=== PATIENT | male | born 1985 | race Caucasian/White ===

== ENCOUNTER 2016-11-23 16:15 | Emergency (ER) | payer MEDICAID ==
--- NOTE | ~2016-11-23 | EKG ---
PATIENT: MAURIZIO RODRIGUEZ UNIT #: [id number] Ventricular Rate: 114 BPM Atrial Rate: 114 BPM P-R Interval: 134 ms QRS Duration: 96 ms Q-T Interval: 346 ms QTC Calculation(Bezet): 476 ms P [place]: 53 degrees Calculated R [place]: 64 degrees Calculated T [place]: 106 degrees Diagnosis Line: Sinus tachycardia Diagnosis Line: Nonspecific T wave abnormality Diagnosis Line: Abnormal ECG Diagnosis Line: Diagnosis Line: Confirmed by JOSELIN MOYA MD ([id number]) on Diagnosis Line: 11/24/2016 11:02:16 AM INTERPRETING MD: MIKE
[~2016-11-23 16:15] MED LIST: AMLODIPINE BESY10 MG PO; CARVEDILOL3.125 MG PO; COREG3.125 MG PO; FOLIC ACID1 MG PO; HUMALOG MIX 75/10 ML; HUMULIN R100 U/ML; LEVEMIR100 UNITS/ SUBQ; LIBRIUM25 M1 PO; LISINOPRIL; LISINOPRIL10 MG PO; MULTI VITAMIN1 EACH PO; NO MEDICATIONS; NORVASC10 MG PO; THIAMINE HCL100 MG PO; ZESTRIL10 M1 PO
[2016-11-23 18:40] LABS: BASOPHIL# 0.1 X10e3 (0-0.3); BASOPHIL% 0.7 % (0-2.5); EOSINOPHIL# 0.3 X10e3 (0-0.7); EOSINOPHIL% 2.2 % (0.0-7.0); HEMATOCRIT 42.7 % (38.0-50.0); HEMOGLOBIN 14.4 gm/dL (13.0-16.0); LYMPHOCYTE# 3.1 X10e3 (1.0-3.5); LYMPHOCYTE% 26.8 % (17.0-45.0); MEAN CELL VOLUME 81.8 FL (83-96); MEAN CORPUSCULAR HEMOGLOBIN 27.6 PG (28-34); MEAN CORPUSCULAR HGB CONC 33.7 g/dL (30-36); MEAN PLATELET VOLUME 7.5 FL (6.5-11.5); MONOCYTE# 0.8 X10e3 (0-1.0); MONOCYTE% 6.5 % (3.0-12.0); NEUTROPHIL# 7.4 X10e3 (1.5-7.1); NEUTROPHIL% 63.8 % (40-75); PLATELET COUNT 324 X10e3 (140-420); RED BLOOD COUNT 5.23 X10e (3.90-5.60); RED CELL DISTRIBUTION WIDTH 12.7 % (11.0-15.5); WHITE BLOOD COUNT 11.7 X10e3 (4.0-10.5)
[2016-11-23 18:44] LABS: DIFF IND NO
[2016-11-23 18:54] LABS: INR 0.9; PARTIAL THROMBOPLASTIN TIME 25.3 SECONDS (23.5-31.3)
[2016-11-23 19:11] LABS: BILIRUBIN, DIRECT 0.1 mg/dL (0.0-0.2); BILIRUBIN,INDIRECT 0.4 mg/dL (0.0-0.9); BILIRUBIN,TOTAL 0.5 mg/dL (0.2-2.0); BUN/CREATININE RATIO 21.66; CALCIUM SERUM 8.9 mg/dL (8.4-10.2); CREATININE SERUM 0.6 mg/dL (0.6-1.4); GLOM FILT RATE Estimated 132.2 mL/min (>60); POTASSIUM 3.9 mmol/L (3.5-5.1); PROTEIN TOTAL SERUM 7.4 g/dL (6.0-8.3)
[2016-11-23 19:30] LABS: POC - CKMB 2.9 ng/mL (0.0-7.9); POC - TROPONIN <0.05 ng/mL (<=0.05)
== END 2016-11-23 22:03 | disposition home or self-care (01) ==
LOC: CED 16:15
PROVIDERS: Emergency Medicine
DX: I10 Essential (primary) hypertension (principal); E11.65 Type 2 diabetes mellitus with hyperglycemia
CPT/HCPCS: 36415; 80048; 80076; 82553; 82947; 84484; 85025; 85610; 85730; 93005; 96374; 96375; 99284; J0360

== ENCOUNTER 2017-01-10 08:36 | Inpatient (IN) | payer MEDICAID ==
[~2017-01-10] VITALS: Ht 167.6 cm; Wt 74.0 kg
--- NOTE | ~2017-01-10 | CO ---
Unit #: [id number] #: [id number] Patient: MAURIZIO RODRIGUEZ L [id number] [address] [place], [place] [address] [id number] I MR#: [id number] NAME: MAURIZIO RODRIGUEZ ROOM: 304 Age: 31 Sex: M Admission Date: 01/10/2017 : 1985 Attending Physician: Ivan Roman M.D. Primary Care Physician: Primary Care Physician No Consultation Date: 01/18/2017 CONSULTATION REPORT REASON FOR CONSULTATION Followup. DISCUSSION Mr. Pal is a 31-year-old white male, seen in room 304 bed 1 on 01/18/2017. The patient dressed in hospital attire, lying comfortably in bed. Mood was labile. The patient reported unable to sleep last night, agitation, mood lability. Mom reported poor sleep last night, mood lability. The patient's vital signs; temperature 98.5, pulse 92, respirations 18, blood pressure 120/86, oxygen saturation 100%. The patient denied any thoughts of harming self or others, but still having above-mentioned symptom. The patient will be going to [facility]. REVIEW OF SYSTEMS Complete review of systems unremarkable. MENTAL STATUS EXAMINATION General appearance; the patient dressed casually. Lying comfortably in bed. Attention span and concentration, poor. Speech, slow in volume. Oriented in place and person. Mood and affect, labile. Thought process, circumstantial. Thought content, the patient denied any thoughts of harming self or others, but guarded, paranoid. Recent and remote memory, fair to slightly impaired. Language, intact. Fund of knowledge, fair. Insight and judgment, fair to slightly impaired. DIAGNOSES Major depressive disorder, recurrent, severe, F33.2. ASSESSMENT AND PLAN 1. Supportive psychotherapy and psychoeducation provided to the patient. 2. Educated about benefits and side effects of medication and course and prognosis of illness. 3. Advised to continue with current medication. If needed, consider further adjustment of medication. Please feel free to call if any questions, telephone #[phone]. Dictated by... Alejandro Aguilar M.D. DAYLIN/delmis TD: 01/18/2017 18:17 JOB #: [id number] Unit #: [id number] #: [id number] Patient: MAURIZIO RODRIGUEZ CONSULTATION REPORT Page 1 of 1 X Alejandro Aguilar MD CONSULTATION REPORT
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
--- NOTE | ~2017-01-10 | DS ---
Unit #: [id number] #: [id number] Patient: MAURIZIO RODRIGUEZ [id number] [place], [place] [address] [id number] I MR#: [id number] NAME: MAURIZIO RODRIGUEZ ROOM: 304 Age: Sex: M Admission Date: 01/10/2017 : 1985 Discharge Date: Attending Physician: Ivan Roman M.D. Primary Care Physician: Primary Care Physician No DISCHARGE SUMMARY ADDENDUM The patient also has urinary retention. The Kidd catheter was removed yesterday morning; however, the patient has not voided. On followup bladder scan this morning, he had over 1000 mL on bladder scan and Kidd catheter was placed back again. He is currently on Flomax. A urinalysis did not demonstrate any signs of infection. Dictated by... Raina Guzman/howard TD: 01/20/2017 07:20 JOB #: [id number] DISCHARGE SUMMARY Page 1 of 1 X X DISCHARGE SUMMARY
--- NOTE | ~2017-01-10 | MR122 ---
[facility] A Service of [facility] & [facility] RADIOLOGY TEXT RESULTS PATIENT: MAURIZIO RODRIGUEZ LOCATION: C3A 304-01 : [birth year] UNIT #: [id number] AGE: [address]: Ronni Thomas MD SEX: M ORDER DR: [id number] [facility] [address] [place], [place] [address] [id number] I MR#: [id number] Acc #: [id number] NAME: MAURIZIO RODRIGUEZ. : 1985 SEX: M STUDY DATE/TIME: 01/13/2017 20:39 UNIT: C3A U ROOM: 304 STUDY DESCRIPTION: MR MRA Head Wo Contrast Attending Physician: Ronni Thomas M.D. Ordering Physician: Hubert Roberts M.D. MRI CENTER REPORT This report is preliminary unless electronic signature is present. EXAM MR angiogram intracranial HISTORY Stroke on yesterday's brain MRI, brain stem. TECHNIQUE MR angiography performed [place] vasculature. FINDINGS The study is extremely motion-limited, despite more than 1 repeat. There is severe signal loss bilaterally at the carotid siphons which could be real or artifactual, unfortunately seen on multiple sequences. There is diseased appearance to the distal left vertebral artery, probably due to some collateral flow. I believe that it is either occluded or has a very slow flow proximal to the distal intracranial portion. There is an irregular appearance to the basilar and there is probably true stenosis at the distal basilar. The left P1 vessel appears relatively hypoplastic and there is origin to the left posterior cerebral artery distribution from a large left posterior communicator. There is no gross intracranial vascular cutoff seen. Allowing for the motion, I am still concerned that there is some intracranial atherosclerotic disease. This is unusual in age group, unless the patient has severe risk factors. Please correlate for any clinical concern for vasculitis. There is probably an anterior communicating artery present but the anatomy is simply not well seen. I would recommend that study be repeated when the patient is better able to cooperate. IMPRESSION 1. This is a severely motion-limited study, despite multiple repeats. There is an abnormal appearance to the distal left vertebral artery. It probably reconstitutes from collateral vessels. It is likely that the [facility] A Service of [facility] & [facility] RADIOLOGY TEXT RESULTS PATIENT: MAURIZIO RODRIGUEZ LOCATION: C3A 304-01 : [birth year] UNIT #: [id number] AGE: [address]: Ronni Thomas MD SEX: M ORDER DR: left vertebral artery in the neck is either occluded or has very slow flow. There is also some narrowing of the distal basilar. This would be consistent with the brainstem insult seen on yesterday's brain MRI. 2. There is signal loss in the bilateral carotid siphons on multiple sequences. This could be real or artifactual and when the patient is better able cooperate, this study should be repeated. 3. Despite the amount of motion seen, I am concerned that there is true intracranial vascular irregularity. This is most concerning for intracranial atherosclerotic disease or vasculitis. It would be unusual in the patient's age group to represent intracranial atherosclerotic disease, unless patient has severe risk factors. STAT * RESULT Dictated by... Emilia Whatley M.D. THIS IS AN ELECTRONICALLY VERIFIED REPORT Emilia Whatley M.D. at 01/13/2017 10:59 PM PRITESH/pcl TD: 01/13/2017 22:32 JOB #: [id number] MRI CENTER REPORT Page 1 of 1 COPY
--- NOTE | ~2017-01-10 | CT17 ---
[facility] A Service of [facility] & [facility] RADIOLOGY TEXT RESULTS PATIENT: MAURIZIO RODRIGUEZ LOCATION: [facility] 304-01 : [birth year] UNIT #: [id number] AGE: [address]: NICOLE TINSLEYUJ V SEX: M ORDER DR: [id number] [facility] [address] [facility] [place], [place] [address] [id number] I MR#: [id number] Acc #: [id number] NAME: MAURIZIO RODRIGUEZ. : 1985 SEX: M STUDY DATE/TIME: 01/15/2017 8:40 UNIT: [address] ROOM: [facility] STUDY DESCRIPTION: CT Angio Head Attending Physician: Ronni Thomas M.D. Ordering Physician: Hubert Roberts M.D. Primary Care Physician: No Primary Care Physician MEDICAL IMAGING REPORT This report is preliminary unless electronic signature is present EXAM Head and neck CT angiogram with contrast, 01/15/2017. COMPARISON Brain MRI, 01/12/2017. CLINICAL HISTORY Nine-day history of generalized weakness and loss of appetite. PROCEDURE Axial contrast-enhanced head and neck CT angiogram with three-dimensional reformats. This CT exam was performed with one or more of the following radiation dose reduction techniques: automatic exposure control, adjustment of mA and/or kV according to patient size, and iterative reconstruction. FINDINGS There is a normal aortic arch branching pattern without proximal great vessel stenosis. The left vertebral artery is tiny and seen only segmentally throughout the neck. The right vertebral is normal in caliber and patent throughout the neck. There is plaque and irregularity in both common carotids and at both carotid bifurcations. On the left, there is 0% ICA stenosis by NASCET criteria, and on the right there is 10% to 20% ICA stenosis by NASCET criteria. There is narrowing in both cavernous carotids [id number] on the right and minimal on the left. The anterior communicator is patent and there is a type left posterior communicator/posterior cerebral origin and a tiny right posterior communicator. There is no evidence of intracranial aneurysm or flow-limiting stenosis, though there is retrograde flow in the left vertebral artery as expected. Otherwise, the intracranial vasculature appears normal and symmetric. [facility] A Service of [facility] RADIOLOGY TEXT RESULTS PATIENT: MAURIZIO RODRIGUEZ LOCATION: C3A PC 304-01 : [birth year] UNIT #: [id number] AGE: [address]: BRYAN TINSLEY V SEX: M ORDER DR: The midbrain lesion seen on an MRI is apparent but less well seen on CT. The remainder of the brain is unremarkable. The cervical soft tissues are unremarkable, though what appears to be an endotracheal tube actually terminates in the hypopharynx. Perhaps this simply represents an oral airway. The dural venous sinuses are normal. There is no intracranial mass or abnormal enhancement. IMPRESSION 1. The right vertebral is widely patent and dominant. The left vertebral is small and only seen segmentally throughout the neck. It does not contribute to the basilar artery. At the basilar confluence, there is retrograde flow in the distal left vertebral artery. The basilar artery itself is normal in caliber. The [place] is complete and there is no other intracranial flow-limiting stenosis and there is no intracranial aneurysm. 2. There is some plaque in the common carotids and at the carotid bifurcations, but there is 0% left and no more than 10% to 20% right ICA stenosis by NASCET criteria. 3. No intracranial mass is seen and the dural venous sinuses are normal. Dictated by... Festus Mirza M.D. THIS IS AN ELECTRONICALLY VERIFIED REPORT Festus Mirza M.D. at 01/20/2017 5:04 PM TEV/danaw TD: 01/15/2017 14:03 JOB #: [id number] MEDICAL IMAGING REPORT Page 1 of 1 COPY
--- NOTE | ~2017-01-10 | CT23 ---
[facility] A Service of [facility] & [facility] RADIOLOGY TEXT RESULTS PATIENT: MAURIZIO RODRIGUEZ LOCATION: [facility] 304-01 : [birth year] UNIT #: [id number] AGE: [address]: PRASHANTH TINSLEYJ V SEX: M ORDER DR: [id number] [facility] [address] [facility]. [place], [place] [address] [id number] I MR#: [id number] Acc #: [id number] NAME: MAURIZIO RODRIGUEZ : 1985 SEX: M STUDY DATE/TIME: 01/15/2017 8:40 UNIT: [address] ROOM: [facility] STUDY DESCRIPTION: CT Angio Neck Attending Physician: Ronni Thomas M.D. Ordering Physician: Hubert Roberts M.D. Primary Care Physician: No Primary Care Physician MEDICAL IMAGING REPORT This report is preliminary unless electronic signature is present EXAM Neck CT angiogram with contrast, 01/15/2017. CLINICAL HISTORY Nine-day history of generalized weakness and loss of appetite. FINDINGS Please see CT angio head for results. Dictated by... Festus Mirza M.D. THIS IS AN ELECTRONICALLY VERIFIED REPORT Festus Mirza M.D. at 01/20/2017 5:03 PM ANGELA/kamlesh TD: 01/15/2017 14:05 JOB #: [id number] MEDICAL IMAGING REPORT Page 1 of 1 COPY
--- NOTE | ~2017-01-10 | CO ---
Unit #: [id number] #: [id number] Patient: DEMARCO RODRIGUEZ [id number] [facility] [address] [facility]. [place], [place] [address] [id number] I MR#: [id number] NAME: DEMARCO RODRIGUEZ. ROOM: 304 Age: 31 Sex: M Admission Date: 01/10/2017 : 1985 Attending Physician: Ivan Roman M.D. Primary Care Physician: Primary Care Physician No Consultation Date: 01/19/2017 CONSULTATION REPORT REASON FOR CONSULTATION Followup. DISCUSSION Demarco is a 31-year-old white male, seen in room 304, bed 1 on 01/19/[address] [facility]. The patient's mood was labile, keeping his eyes closed, sad, dysphoric, irritable. The patient's blood glucose was 287. The patient reports tolerating medication fairly well, sleeping good. The patient denied any thoughts of harming self or others. The patient's vital signs; temperature 98.1, heart rate 93, respirations 16, blood pressure 145/93, and oxygen saturation 100%. The patient's speech is somewhat slurred and gait is unsteady. REVIEW OF SYSTEMS Complete review of systems unremarkable. MENTAL STATUS EXAMINATION General appearance; the patient dressed casually in hospital attire. Attention span and concentration, poor. Speech, poor articulation, at times slurred . Oriented in time, place, and person. Mood and affect, labile. Thought process, circumstantial. Thought content, guarded and paranoid, but denied any thoughts of harming self or others. Recent and remote memory, fair to slightly impaired. Language, intact. Fund of knowledge, fair. Insight and judgment, fair to slightly impaired. DIAGNOSIS Psychiatric: Major depressive disorder, recurrent, severe. ASSESSMENT/PLAN 1. Advised to continue with current medication and therapeutic protocol. If needed, consider further adjustment of medication. Supportive psychotherapy and psychoeducation provided to the patient. 2. We will continue to follow. Please feel free to call if any questions, telephone #[phone]. Dictated by... Raina Laws/delmis TD: 01/19/2017 23:59 JOB #: [id number] Unit #: [id number] #: [id number] Patient: DEMARCO RODRIGUEZ CONSULTATION REPORT Page 1 of 1 X Alejandro Aguilar MD CONSULTATION REPORT
--- NOTE | ~2017-01-10 | FU ---
[facility] DATE: 01/13/17 Patient: MAURIZIO RODRIGUEZ Physician: VIRIDIANA Address: [address] Room/Bed: [address] [place] [address], Zip: [place] [address] Admit Date: 01/10/17 Date of : [birth year] Height: 5 6 Weight: 165 75 NUTRITION MONITORING/FOLLOW-UP: Reason: CONSULT RE: STROKE PROTOCOL, F/U DX: DKA Anthropometrics: 5'6", WT: 167# (76 KG), BMI: 27 (ADMIT WEIGHT) Labs: GLU: 169, CREAT: 0.5, ALB: 3.2, AST: 96, ALT: 62, PHOS: 2.1, A1c: 13.4 (REFLECTS POOR GLUCOSE MANAGEMENT), NA+:134 Meds: LIPITOR, NOVOLOG, LEVEMIR, PROTONIX, KCL, ZOFRAN, NACL I&O's: 540/5326, 1 BM Skin: NO KNOWN SKIN ISSUES Assessment: CHART REVIEWED AND EVENTS NOTED. PT SEEN FOR STROKE PROTOCOL. PT TRANSFERED FROM ICU TO [facility]IC, CONFUSED AND DISORIENTED AT TIME OF VISIT. PER CHART, DOUGH BRAKER EVALED PT AND RECOMMEDED PT BE SUPERVISED WHEN EATING AND AT RISK FOR ASPIRATION. OF NOTE, RD ASSESSED PT ON 01/10/[address] PROVIDED CC + TYPE 1 DIET EDUCATION WITH FAMILY AT BEDSIDE AT THIS TIME. FAMILY REPORTED NO DIET QUESTIONS. RD TO FOLLOW. Dx: ALTERED NUTRIENT RELATED LAB VALUES R/T MEDICATION NON-COMPLIANCE AEB A1c OF 13.4, GLUCOSE 334 ON ADMISSION, DKA.-ACTIVE 2. ALTERED NUTRIENT NEEDS R/T CURRENT CLINICAL CONDITION AEB DOUGH BRAKER FOLLOWING, STROKE. Intervention: 1. MECHANICAL GROUND DIET + NDD2 + NECTAR THICK LIQUID 2. ENSURE PUDDING BID W/MEALS 3. DIET EDUCATION (WRITTEN AND VERBAL) Monitoring, Evaluation and Goals: 1. TOLERANCE OF ORAL DIET ADVANCEMENT-IN PROGRESS 2. REDUCTION OF A1c, GLUCOSE <200 mg/dL-IN PROGRESS (CURRENT GLUCOSE IS 169 mg/dL) MONITOR: PER PROTOCOL, CRITERIA TO DETERMINE IF ABOVE GOALS ARE MET Recommendations: 1. ORDER BUTTERSCOTCH ENSURE PUDDING BID W/MEALS 2. CONTINUE DOUGH BRAKER EVALUATION FOR SAFE SWALLOW 3. RECOMMEND TO ADD CC (60 G CARBS/MEAL) TO CURRENT DIET ORDER 2' PMH, DX, ELEVATED BLOOD [facility] DATE: 01/13/17 Patient: MAURIZIO RODRIGUEZ Physician: VIRIDIANA Address: [address] [place] [address] Room/Bed: [address] [place] [address], Zip: [place] [address] Admit Date: 01/10/17 Date of : [birth year] Height: 5 6 Weight: 165 75 SUGAR LEVELS NOTED 4. REPLACE LYTES PRN (PHOS LOW) RD WILL F/U PER PROTOCOL PT IS MILDLY COMPROMISED Respectfully, JASMYN MOREL MS, RD, LD [employer] and Nutrition[facility] Services [facility] cc: client file
--- NOTE | ~2017-01-10 | CT2 ---
[facility] A Service of [facility] RADIOLOGY TEXT RESULTS PATIENT: MAURIZIO RODRIGUEZ LOCATION: [address] : 83 UNIT #: [id number] AGE: [address]: Layla Beltran MD SEX: M ORDER DR: [id number] [facility] [address] [facility]. [place], [place] [address] [id number] I MR#: [id number] #: [id number] NAME: MAURIZIO RODRIGUEZ. : 1985 SEX: M STUDY DATE/TIME: 01/10/2017 12:05 UNIT: [facility] ROOM: [facility] STUDY DESCRIPTION: CT Abd and Pelv W Cont Attending Physician: Layla Beltran M.D. Ordering Physician: Mihir Moreno M.D. Primary Care Physician: No Primary Care Physician MEDICAL IMAGING REPORT This report is preliminary unless electronic signature is present EXAM CT of the abdomen and pelvis. HISTORY Weakness, loss of appetite since January 06, 2017 and increased blood sugar. TECHNIQUE Axial CT images were obtained from the dome of the diaphragm through the symphysis pubis following the administration of intravenous contrast material. This CT exam was performed with one or more of the following radiation dose reduction techniques: automatic exposure control, adjustment of mA and/or kV according to patient size, and iterative reconstruction. FINDINGS This patient's distal esophagus appears thick-walled and edematous and there also appears to be some periesophageal standing. Correlation with any evidence of esophagitis is suggested. Stomach and proximal small bowel appear unremarkable as are the adrenal glands. Pancreas is atrophic. Liver appears unremarkable. Spleen also appears normal. Patient I think does have some nonobstructing stones within the left kidney. There is also a lesion arising from the left kidney measuring up to 0.09 x 1.1 cm which is not definitely a simple cyst. Solid lesion cannot be excluded. The patient's urinary bladder appears distended. There is no evidence of mechanical bowel obstruction. Prostate gland appears unremarkable. I do not see any free fluid or adenopathy within the pelvis. Review of bony windows does not demonstrate any aggressive osseous abnormalities. STS. [facility] A Service of [facility] RADIOLOGY TEXT RESULTS PATIENT: MAURIZIO RODRIGUEZ LOCATION: [facility] : 83 UNIT #: [id number] AGE: [address]: Layla Beltran MD SEX: M ORDER DR: IMPRESSION 1. Distal esophagus appears thick-walled and edematous. There also appears to be some periesophageal soft tissue stranding. Correlation with any evidence of esophagitis is recommended. 2. Nonobstructing stones identified within the left kidney. 3. Exophytic structure arising from the left kidney measuring up to 1.1 x 0.9 cm. it is indeterminate. The possibility of solid renal mass cannot be excluded. Further evaluation with renal protocol CT or MRI on a nonemergent outpatient basis is recommended. MRI would be the chest of choice in this 31-year-old patient. 4. Pancreatic atrophy. 5. Distension of the urinary bladder. Correlation with any history of urinary retention is suggested. Dictated by... Concha Quinn M.D. THIS IS AN ELECTRONICALLY VERIFIED REPORT Concha Quinn M.D. at 01/10/2017 5:04 PM HALEY/kamlesh TD: 01/10/2017 15:56 JOB #: [id number] MEDICAL IMAGING REPORT Page 1 of 1 COPY
--- NOTE | ~2017-01-10 | CO ---
Unit #: [id number] #: [id number] Patient: MAURIZIO RODRIGUEZ [id number] [address] [address] [id number] I MR#: [id number] NAME: MAURIZIO RODRIGUEZ ROOM: 304 Age: 31 Sex: M Admission Date: 01/10/2017 : 1985 Attending Physician: Lazara Dowell M.D. Primary Care Physician: Primary Care Physician No Consultation Date: 01/16/2017 CONSULTATION REPORT REASON FOR CONSULTATION Followup. DISCUSSION Mr. Pal is a 31-year-old white male, seen in room 304, bed 1 on 01/16/2017. The patient dressed casually, lying comfortably in bed. The patient's brother was at the bedside. The patient was able to answer questions appropriately. The patient has a history of depressive disorder, alcohol abuse, recent CVA. Currently medications are working. The patient reports feeling better and currently on Prozac and Zyprexa combination. Denied any suicidal or homicidal ideation. Denied any agitation. Slept good. The patient's vital signs; temperature 98.1, heart rate 93, respiratory rate 16, blood pressure 138/95, and oxygen saturation 98%. REVIEW OF SYSTEMS Complete review of system is unremarkable. MENTAL STATUS EXAMINATION General appearance; the patient dressed casually in hospital attire, lying comfortably in bed. Attention span and concentration, fair to poor. Speech, slow in volume with long pauses. Oriented in place and person. Mood and affect; sad, depressed, flat. Thought process, circumstantial. Thought content, the patient denied any suicidal or homicidal ideation. Denied any auditory or visual hallucination, but paranoid. Recent and remote memory, fair. Language, fair. Fund of knowledge, fair. Insight and judgment, fair to slightly impaired. DIAGNOSES Major depressive disorder, recurrent, severe, F33.2; alcohol use disorder, severe, F10.20. ASSESSMENT/PLAN 1. Supportive psychotherapy and psychoeducation provided to the patient. 2. Educated about benefits and side effects of medication and course and prognosis of illness. 3. Advised to continue with the current combination of medication. If needed, consider further adjustment. Please feel free to call if any questions, telephone #[phone]. Dictated by... Alejandro Aguilar M.D. Unit #: [id number] #: [id number] Patient: MAURIZIO RODRIGUEZ DAYLIN/modl TD: 01/17/2017 00:10 JOB #: [id number] CONSULTATION REPORT Page 1 of 1 X Alejandro Aguilar MD CONSULTATION REPORT
--- NOTE | ~2017-01-10 | CO ---
Unit #: [id number] #: [id number] Patient: MAURIZIO RODRIGUEZ [id number] [address] [address] [id number] I MR#: [id number] NAME: MAURIZIO RODRIGUEZ ROOM: 304 Age: 31 Sex: M Admission Date: 01/10/2017 : 1985 Attending Physician: Ronni Thomas M.D. Consultation Date: 01/14/2017 CONSULTATION REPORT REASON FOR CONSULTATION Depression. HISTORY OF PRESENT ILLNESS Mr. Pal is a 31-year-old white male, seen in room 304 bed 1 on 01/14/2017. The patient reported increasingly depressed in the last 4 days. The patient reported sad, depressed, feeling of hopelessness, admitted in diabetic ketoacidosis. The patient has a history of alcohol abuse and depression. The patient reported mood lability, racing thoughts, paranoia, but denied any suicidal or homicidal ideation. The patient was admitted on 01/10/2017 with high blood sugar. The patient's blood glucose was 314 upon admission. PAST PSYCHIATRIC HISTORY Remarkable for history of previous treatment at [facility] in 2014, diagnosed with alcohol dependence and mood disorder. MEDICAL HISTORY Remarkable for history of hypertension, diabetic retinopathy. MEDICATIONS HISTORY The patient is on Lipitor, aspirin, NovoLog, Flomax, Levemir, Protonix, Neurontin. FAMILY HISTORY AND SOCIAL HISTORY The patient has a good support system. No history of abuse. Reported history of alcohol abuse. REVIEW OF SYSTEMS Complete review of systems unremarkable. MENTAL STATUS EXAMINATION The patient's vital signs; temperature 100.4, pulse 103, respirations 16, blood pressure 156/96, and oxygen saturation 98%. General appearance; the patient dressed casually lying comfortably in bed. Attention span and concentration, fair. Speech, regular rate and coherent. Oriented in time, place, and person. Mood and affect; sad and dysphoric. Thought process, coherent. Thought content, the patient denied any thoughts of harming self or others, but guarded, paranoid, racing thoughts, depression. Recent and remote memory, fair. Language, intact. Fund of knowledge, fair. Insight and judgment, fair to slightly impaired. DIAGNOSES Psychiatric: Major depressive disorder, recurrent, severe, F33.2; history Unit #: [id number] #: [id number] Patient: MAURIZIO RODRIGUEZ of alcohol abuse disorder, moderate to severe, F10.20. Secondary diagnosis: Deferred. Medical diagnosis: Please refer to H and P. Stressors: Psychosocial stressors. ASSESSMENT AND PLAN 1. Supportive psychotherapy and psychoeducation provided to the patient. 2. Educated about benefits and side effects of medication and course and prognosis of illness. 3. Advised to add Prozac 20 mg and Zyprexa 5 mg at bedtime. If needed, consider further adjustment of medication. Please feel free to call if any question, telephone #[phone]. Dictated by... Raina Laws/delmis TD: 01/15/2017 18:37 JOB #: [id number] CONSULTATION REPORT Page 1 of 1 X Alejandro Aguilar MD X CONSULTATION REPORT
--- NOTE | ~2017-01-10 | HP ---
Unit #: [id number] #: [id number] Patient: MAURIZIO RODRIGUEZ [id number] [facility] [address]. [place], [place] [address] [id number] MR#: [id number] NAME: MAURIZIO RODRIGUEZ. ROOM: Age: 31 Sex: M Admission Date: 01/10/2017 : 1985 Attending Physician: Mihir Moreno M.D. Primary Care Physician: No Primary Care Physician HISTORY AND PHYSICAL CHIEF COMPLAINT High blood sugar, out of insulin. HISTORY OF PRESENT ILLNESS The patient is a 31-year-old male with past medical history of diabetes, hypertension, alcohol abuse who presented to the emergency department for evaluation of the above. The patient states that he ran out of insulin a few weeks ago. He started feeling poorly about two days ago. He reports two to three bouts of nonbloody emesis within the past 24 hours. He denies any diarrhea. He has had abdominal pain intermittently. He denies any urinary symptoms. In the emergency department, initial glucose was 334. Glucose was 314 on comprehensive metabolic panel with CO2 of 10. Anion gap of 22. He was given 2 L of normal saline as well as 5 units of regular insulin. He is being admitted to [facility] for evaluation and further treatment. PAST MEDICAL HISTORY 1. Admission to [facility] January 15 through January 17, 2015 for accelerated hypertension and alcohol abuse. 2. Diabetes with retinopathy and peripheral neuropathy. 3. Hypertension. PAST SURGICAL HISTORY Eye surgery. SOCIAL HISTORY The patient lives with his mom. He has a history of alcohol abuse but states that his last drink was two years ago. He also has history of smoking but denies current smoking. He states that he sometimes takes opiates that are not prescribed. FAMILY HISTORY Notable for there being no history of diabetes in his parents. REVIEW OF SYSTEMS A complete review of systems is negative except as indicated in the HPI. The patient states that he has been feeling generally weak. He has had several falls. He denies any loss of consciousness. DIAGNOSTIC STUDIES LABORATORY: Urinalysis shows 3+ protein, greater than 1000 glucose, 3+ Unit #: [id number] #: [id number] Patient: MAURIZIO RODRIGUEZ ketones, 3+ blood with 2-5 red blood cells. Complete blood count notable for white blood cell count of 24.9. Comprehensive metabolic panel notable for sodium of 132, CO2 was 10, anion gap was 22, glucose 314, BUN and creatinine 27 and 1.2 respectively. AST and ALT are 135 and 42 respectively. Beta hydroxybutyrate 7.91. IMAGING: CT of the abdomen and pelvis shows possible esophagitis as well as an exophytic structure involving the left kidney. Renal protocol CT is recommended on an nonemergent basis. PHYSICAL EXAMINATION VITAL SIGNS: Temperature is 98.6, pulse 109, respirations 16, blood pressure 160/104, oxygen saturation 100% on room air. GENERAL: The patient is a male who is awake and alert in no acute distress. HEENT: The head is atraumatic. Mucous membranes are dry. NECK: Supple. Trachea is midline. CARDIOVASCULAR: Tachycardic in the 100s. LUNGS: Clear to auscultation bilaterally with no increased work of breathing. ABDOMEN: Soft, nontender with bowel sounds present in all four quadrants. EXTREMITIES: Nontender with no pedal edema. NEUROLOGIC: The patient is awake and alert. He is oriented x3. He is moving all extremities. PSYCHIATRIC: The patient is somewhat tearful. He is cooperative. SKIN: Skin of examined areas is warm and dry. He does have scattered contusions on the lower extremities. ASSESSMENT The patient is a 31-year-old male with: 1. Diabetic ketoacidosis: The patient received 2 L of normal saline in the emergency department as well as 5 units of regular insulin. The patient has been out of his insulin for several weeks. He is unable to tell me his home regimen of insulin other than the fact that he is on Humalog. He is not sure how much. 2. Anion gap metabolic acidosis with an anion gap of 22. 3. Uncontrolled hypertension with an initial blood pressure of 160/104. The patient received 10 mg of labetalol. Most recent blood pressure is 178/103. 4. General weakness. 5. Retinopathy. 6. Neuropathy. 7. History of alcohol abuse: The patient denies alcohol for the past two years. 8. Former smoker. 9. Left kidney mass. PLAN 1. Admit to intensive care unit. 2. Diabetic ketoacidosis protocol with insulin drip to start now. 3. P.r.n. hydralazine. 4. Check CPK. 5. EKG and cardiac enzymes. 6. P.r.n. Zofran. 7. P.r.n. Tylenol. 8. Protonix for gastrointestinal prophylaxis. 9. SCDs for deep venous thrombosis prophylaxis. 10. Physical therapy, occupational therapy to evaluate and treat. Unit #: [id number] #: [id number] Patient: MAURIZIO RODRIGUEZ 11. Check magnesium level. 12. Urine tox screen. 13. The patient will need renal protocol CT or MRI for further evaluation of left kidney mass. I have not yet ordered that. 14. Repeat labs in the morning. 15. Additional workup and consultants based on above. Thirty one minutes critical care time spent on the care of this patient (1:19 to 1:50 p.m.). Dictated by Raina Kumar/briseida TD: 01/10/2017 14:09 JOB #: [id number] HISTORY AND PHYSICAL Page 1 of 1 X Layla Beltran MD X HISTORY AND PHYSICAL
--- NOTE | ~2017-01-10 | TOC ---
Unit #: [id number] #: [id number] Patient: MAURIZIO RODRIGUEZ [id number] [facility] [address] [facility]. [place], [place] [address] [id number] I MR#: [id number] NAME: MAURIZIO RODRIGUEZ. ROOM: 304 Age: 31 Sex: M Admission Date: 01/10/2017 : 1985 Attending Physician: Lazara Dowell M.D. Primary Care Physician: No Primary Care Physician TRANSFER OF CARE SUMMARY DIAGNOSES AT TIME OF DICTATION 1. Diabetic ketoacidosis. 2. Amnion gap metabolic acidosis. 3. Uncontrolled hypertension. 4. Generalized weakness. 5. History of alcohol abuse. 6. Kidney mass. 7. Midbrain CVA. 8. Rhabdomyolysis. 9. Toxic metabolic encephalopathy. 10. Urinary retention. HOSPITAL COURSE The patient is a 31-year-old male brought to [facility] emergency department secondary to high blood sugars. Apparently the patient had been out of insulin for a few weeks and began to feel bad two days prior to presentation. He reported some emesis. In the emergency department he was noted to have a glucose of 334, anion gap of 22. He was given 2 liters normal saline, IV insulin and admitted. The patient was sent to the ICU and started on DKA protocol. He was marginally confused upon presentation, though it is unclear how much was confusion and how much was refusal to cooperate. The patient's DKA resolved with treatment and the patient's mental status seemed to improve initially. Additionally, with the encephalopathy upon presentation there was thought to be some history of possible drug abuse. The patient reports a history of opioid use, but the patient's tox screen was negative. Upon resolution of his DKA, the patient stated that he had been feeling quite ill prior to presentation and that he may have fallen or laid on the floor. He was unsure. He does comment that he was urinating on himself and that he was so weak that he had needed to crawl around on the floor to make it to the bathroom. His abdomen was somewhat distended and a Kidd catheter was placed and 3 liters of urine were returned at that time. The patient was started on Flomax. The following day the patient was transferred to the floor and nursing on the floor felt like there was some change in the patient's mental status and weakness. An MRI was performed that revealed the focus of restricted diffusion in the midbrain that measured 2.4 x 1.9 cm. It was asymmetric and involved the right greater than left. It was noted to be worrisome for ischemic insult due to labview programmer occlusion. It was also noted, Unit #: [id number] #: [id number] Patient: MAURIZIO RODRIGUEZ however, that some form of cerebritis could not be ruled out. Neurology consult was obtained. The patient was sent for MRA of the head and neck. However, it was thought to be a very poor quality study secondary to severe motion degradation. As a result, it has been decided to proceed with CTA under sedation. This test will be performed tomorrow Dictated by... Ronni Thomas M.D. JADE/gz TD: 01/17/2017 11:20 JOB #: [id number] TRANSFER OF CARE SUMMARY Page 1 of 1 X Ronni Thomas MD X TRANSFER OF CARE SUMMARY
--- NOTE | ~2017-01-10 | MR134 ---
[facility] A Service of [facility] RADIOLOGY TEXT RESULTS PATIENT: MAURIZIO RODRIGUEZ LOCATION: [facility] 304-01 : [birth year] UNIT #: [id number] AGE: [address]: Ronni Thomas MD SEX: M ORDER DR: [id number] [facility] [address] [facility] [place], [place] [address] [id number] I MR#: [id number] Acc #: [id number] NAME: MAURIZIO RODRIGUEZ. : 1985 SEX: M STUDY DATE/TIME: 01/13/2017 20:39 [facility] ROOM: 304 STUDY DESCRIPTION: MR MRA Neck Wo Contrast Attending Physician: Ronni Thomas M.D. Ordering Physician: Hubert Roberts M.D. Primary Care Physician: Primary Care Physician No MRI CENTER REPORT This report is preliminary unless electronic signature is present. EXAM MR angiogram neck without HISTORY CVA with brainstem lesion on yesterday's brain MRI COMMENT MR angiography performed neck vessels without contrast. This study is limited by patient motion despite repeating portion of the exam. FINDINGS There is a dominant right vertebral artery. The left vertebral artery is not seen as a normal structure in the neck. It is probably diseased. There is a small component of distal left vertebral artery seen intracranially which could be due to some collateral reconstitution. By NASCET criteria there is probably not hemodynamically-significant narrowing either carotid bifurcation allowing for the considerable motion. IMPRESSION 1. By NASCET criteria probably no hemodynamically-significant narrowing of either carotid bifurcation allowing for motion. 2. The right vertebral artery is patent. The left vertebral artery is not seen as a normal structure in the neck. I suspect it is diseased with either very slow flow or occlusion and probably some distal reconstitution of a small vessel intracranially. Please correlate for clinical concern for dissection versus atherosclerotic disease. In this young patient, please correlate for any history of trauma which might have resulted in dissection. STAT * RESULT [facility] A Service of [facility] RADIOLOGY TEXT RESULTS PATIENT: MAURIZIO RODRIGUEZ LOCATION: [facility] 304-01 : [birth year] UNIT #: [id number] AGE: [address]: Ronni Thomas MD SEX: M ORDER DR: Dictated by... Emilia Whatley M.D. THIS IS AN ELECTRONICALLY VERIFIED REPORT Emilia Whatley M.D. at 01/13/2017 10:57 PM SAC/to TD: 01/13/2017 22:24 JOB #: [id number] MRI CENTER REPORT Page 1 of 1 COPY
--- NOTE | ~2017-01-10 | DS ---
Unit #: [id number] #: [id number] Patient: MAURIZIO RODRIGUEZ [id number] [facility] [address] [facility] [place], [place] [address] [id number] I MR#: [id number] NAME: MAURIZIO RODRIGUEZ ROOM: 304 Age: 31 Sex: M Admission Date: 01/10/2017 : 1985 Discharge Date: 01/19/2017 Attending Physician: Ivan Roman M.D. Primary Care Physician: [place] Primary Care Physician DISCHARGE SUMMARY DISCHARGE DIAGNOSES 1. Diabetic ketoacidosis. 2. Uncontrolled hypertension. 3. History of alcohol abuse. 4. Mid brain ischemic stroke. 5. Rhabdomyolysis. 6. Toxic metabolic encephalopathy. 7. Urinary retention. PERTINENT HISTORY AND HOSPITAL COURSE The patient is a 31-year-old man who is brought to [facility] for high blood sugars. Apparently the patient had not had his insulin for a few weeks. In the emergency department, the patient had a glucose of 334; however, an anion gap of 22. He was given 2 L of normal saline and IV insulin, following which the patient's DKA resolved. Also the patient was noted to have altered mental status and generalized weakness. An MRI was performed that demonstrated a focus of restricted diffusion in the mid brain that measured 2.4 x 1.9 cm It was asymmetric and involved the right greater than left. Also during his admission, the patient was noted to have urinary retention. Also during his admission, the patient was treated for depression with Fluoxetine and Zyprexa and was followed by psychiatry consultation. Regarding his stroke symptoms, he has impaired bed mobility, impaired transfers, impaired gait and would benefit from further physical therapy, as well as occupational therapy and speech therapy. To help with the dysuria and aphasia. Therefore, the patient will be transferred to [facility] for continued rehabilitation. DISCHARGE MEDICATIONS 1. Flomax 04 mg p.o. q.h.s. 2. Tylenol 650 mg p.o. q.6 p.r.n. 3. Gabapentin 100 mg p.o. t.i.d. 4. Fluoxetine 20 mg p.o. at bedtime. 5. Aspirin 325 mg p.o. once daily. 6. Protonix 40 mg p.o. twice daily. 7. Zyprexa 5 mg p.o. twice daily. 8. Verapamil SR 120 mg p.o. once daily. 9. Lisinopril 10 mg p.o. once daily. 10. Levemir insulin 20 units subcu twice daily. 11. NovoLog aspart high dose sliding scale insulin coverage a.c. meals. 12. Mupirocin ointment to abrasions over feet. DISCHARGE INSTRUCTIONS The patient will be transferred to [facility] for continued physical therapy, occupational therapy, and speech therapy. Unit #: [id number] #: [id number] Patient: MAURIZIO RODRIGUEZ Dictated by... Raina Guzman/hayes TD: 01/20/2017 07:44 JOB #: [id number] DISCHARGE SUMMARY Page 1 of 1 X X DISCHARGE SUMMARY
--- NOTE | ~2017-01-10 | FU ---
[facility] Nutrition Therapy DATE: 01/19/17 Patient: MAURIZIO RODRIGUEZ Physician: VIRIDIANA Address: [facility] [address] Room/Bed: [address] [place] [address], Zip: [place] [address] Admit Date: 01/10/17 Date of : [birth year] Height: 5 6 Weight: 160 72.8 NUTRITION MONITORING/FOLLOW-UP: Reason: Nutrition follow-up Admitting dx: 31 y/o male admitted with DKA, s/p stroke Anthropometrics: Ht: 66", admission wt: 76 kg, current wt: 72.8 kg, BMI: 27 (overweight; based on admission wt) Labs: Na 134, glucose 324, POC 139-266 Meds: Milk of Mg, PPI, Levemir, high SSI, Zofran prn GI: BM 01/16, - N/V Skin: Redness coccyx, L foot wound noted in chart Assessment: Chart reviewed, events noted. Patient is tolerating PO diet however wrong diet is ordered (GI soft instead of Mechanical soft)- RN will change to appropriate diet per TAPEMAN. Patient reports consuming 100% of breakfast this morning which consisted of chinese toast and eggs. Says he tries to eat 3 meals per day. Wound care consulted due to L foot wound. TAPEMAN following. See nutrition dx, goals and RD recs as stated below. Plan for [facility] today or tomorrow. Dx: 1) Altered nutrient needs r/t clinical condition AEB stroke, TAPEMAN, altered texture diet - ACTIVE 2) Altered nutrition related lab values r/t medication non-compliance AEB A1C 13.4, glucose 334 on admission, DKA - RESOLVED New nutrition dx: Altered nutrition related lab values r/t insufficient carbohydrate metabolism AEB A1C 13.4, glucose POC 139-266. Intervention: Diet per TAPEMAN Monitoring, Evaluation and Goals: 1. Tolerance of oral diet advancement - MET 2. Improvement in labs (A1C, glucose) - IN PROGRESS New goal (in addition to above): PO intake 50-100% of meals Recommendations: [facility] Nutrition Therapy DATE: 01/19/17 Patient: MAURIZIO RODRIGUEZ Physician: VIRIDIANA Address: [facility] [address] Room/Bed: [address] [place] [address], Zip: [place] [address] Admit Date: 01/10/17 Date of : [birth year] Height: 5 6 Weight: 160 72.8 1. Please updated current diet order to reflect TAPEMAN recs: mechanical soft/NDD2/NTL. Advance texture as able per TAPEMAN recs. 2. Optimize current insulin regimen to promote adequate blood glucose control (changed to high SSI 01/18). Status: Mild nutrition risk Respectfully, Lissette Ricks RD, LD Food and Nutritional Services [facility] cc: client file
--- NOTE | ~2017-01-10 | A ---
[facility] Nutrition Therapy DATE: 01/11/17 Patient: MAURIZIO RODRIGUEZ Physician: VIRIDIANA Address: [address] Room/Bed: [address], Zip: [place] [address] Admit Date: 01/10/17 Date of : 83 Height: 5 6 Weight: 167 76 NUTRITIONAL ASSESSMENT: REASON: Seen due to diagnosis Admitting dx: 31 y/o male admitted with DKA, ran out of insulin a few weeks ago PMH: DM, HTN, hx ETOH abuse (denies ETOH in past 2 years), former smoker, retinopathy, peripheral neuropathy Anthropometrics: Ht: 66", Wt: 76 kg, BMI: 27 (overweight) Labs: Na 129, glucose WNL, POC 98-110, A1C 13.4, AST 188, ALT 49, Phos 1.8 Meds: insulin drip, PPI, zofran prn, milk of mg, NSIVF @ 150 ml/hr I/O & Bowel function: 01/09 Skin Integrity: Reviewed; no significant issues, no edema Assessment: Chart reviewed, events noted. See admitting dx and PMH as stated above. RD assessing due to diagnosis. Patient is on room air, RN about to D/C insulin drip. Per RN pt has been tolerating clear liquids, however he does not officially have a diet ordered in [employer]. Pt has been asking for regular foods. He has a hx at [facility] in 2015 but denies ETOH use for the past 2 years. Tox screen + for TCA only. Glucose was 334 on admission, see A1C level which indicates pt has likely not been taking insulin for much longer than a few weeks. Per NCM the pt has Medicaid so his insulin is 100% covered, so there may be other issues hindering access to his medications. He is sleeping at time of visit to room and not yet appropriate to assess diet education needs, although primary cause of his DKA is medication non-compliance. See RD recs below, will follow hospital course. Dx: Altered nutrition related lab values r/t medication non-compliance AEB A1C 13.4, glucose 334 on admission, DKA. Intervention: Diet as tolerated, SW/NCM for medication access, diet education? Monitoring, Evaluation and Goals: 1. Tolerance of oral diet advancement. 2. Reduction in A1C, glucose < 200 mg/dL. Monitor: per protocol, criteria to determine if above goals met Recommendations: [facility] Nutrition Therapy DATE: 01/11/17 Patient: MAURIZIO RODRIGUEZ Physician: VIRIDIANA Address: [address] Room/Bed: [address], Zip: [place] [address] Admit Date: 01/10/17 Date of : [birth year] Height: 5 6 Weight: 167 76 1. Advance oral diet as tolerated to 60g carb/meal. 2. RD will follow to determine diet education needs, however the primary cause of his DKA is due to insulin non-compliance. SW/NCM to work with the patient for medication access. Please consult RD prior to discharge if diet education is desired. 3. Replace lytes prn (Phos low). RD will follow hospital course Mild nutrition risk Respectfully, Lissette Ricks, REBECCA, LD Food and Nutritional Services [facility] cc: client file
--- NOTE | ~2017-01-10 | MR18 ---
[facility] A Service of [facility] & [facility] RADIOLOGY TEXT RESULTS PATIENT: MAURIZIO RODRIGUEZ LOCATION: C3A 304-01 : 83 UNIT #: [id number] AGE: [address]: Ronni Thomas MD SEX: M ORDER DR: [id number] [facility] [address] [place], [place] [address] [id number] I MR#: [id number] Acc #: [id number] NAME: MAURIZIO RODRIGUEZ. : 1985 SEX: M STUDY DATE/TIME: 01/12/2017 19:00 UNIT: C2A ROOM: 227 STUDY DESCRIPTION: MR Brain Wo Contrast Attending Physician: Ronni Thomas M.D. Ordering Physician: Ronni Thomas M.D. Primary Care Physician: No Primary Care Physician MRI CENTER REPORT This report is preliminary unless electronic signature is present. EXAM MRI brain without contrast. HISTORY Confusion, question stroke. 31-year-old male patient with a history of diabetes, hypertension and alcohol abuse. Diabetic ketoacidosis stenosis presentation. Last seen normal 01/08/2017. COMMENT MRI of the brain was performed without contrast using 1.5T imaging technique and motion limiting sequences. COMPARISON Comparison head CT is from 04/06/2015. FINDINGS There is a fairly large area of abnormally restricted diffusion in the brainstem. This includes involvement of the right greater than left cerebral peduncle and midline anterior mid brain. It is about 2.4 x 1.9 cm in dimension. Probably mild local mass effect. No definite hemorrhagic transformation. This is most worrisome for a vascular ischemic insult to a perforating vessel. A demyelinating lesion is felt less likely because it is not symmetric, and it is very localized. Some type of encephalitis in an immunocompromised patient should be included in the differential. There is no downward herniation or midline shift. There are old lacunar insults in the left cerebellar hemisphere peripherally. There is mild white matter disease, otherwise, probably due to small vessel disease and history. No hemorrhagic transformation. No extraaxial fluid collection. Major arterial intracranial flow voids are grossly maintained. Prominence perivascular space is noted for age group. Small amount of fluid or inflammatory change right mastoid tip. STS. [facility] A Service of [facility] & [facility] RADIOLOGY TEXT RESULTS PATIENT: MAURIZIO RODRIGUEZ LOCATION: C3A 304-01 : 83 UNIT #: [id number] AGE: [address]: Ronni Thomas MD SEX: M ORDER DR: IMPRESSION 1. There is a focus of restricted diffusion in the midbrain measuring about 2.4 x 1.9 cm in dimension. Asymmetrically worse involvement of the right of cerebral peduncle is noted. There may be subtle mass effect but there is no hemorrhagic transformation. This is most worrisome for an ischemic insult due to a basin operator occlusion. It is conceivable that this is some manifestation of cerebritis since this patient has known immunocompromised state. Please correlate further clinically. Less likely consideration would be demyelinating disease due to toxic or osmotic demyelination since the lesion is not particularly symmetric. Please correlate further clinically. Efforts underway to reach ordering physician. 2. Mild nonspecific white matter disease otherwise. STAT * RESULT I spoke to Dr. Jackson. Dictated by... Emilia Whatley M.D. THIS IS AN ELECTRONICALLY VERIFIED REPORT Emilia Whatley M.D. at 01/12/2017 10:59 PM Dusty TD: 01/12/2017 20:00 JOB #: [id number] MRI CENTER REPORT Page 1 of 1 COPY
--- NOTE | ~2017-01-10 | CR90 ---
[facility] A Service of [facility] & [facility] RADIOLOGY TEXT RESULTS PATIENT: MAURIZIO RODRIGUEZ LOCATION: [facility] 304-01 : 83 UNIT #: [id number] AGE: [address]: BRYAN ROMAN V SEX: M ORDER DR: [id number] [facility] [address] [place], [place] [address] [id number] I MR#: [id number] Acc #: [id number] NAME: MAURIZIO RODRIGUEZ. : 1985 SEX: M STUDY DATE/TIME: 01/20/2017 10:52 UNIT: [address] ROOM: [facility] STUDY DESCRIPTION: CR Elbow 2 View Lt Attending Physician: Bryan Roman M.D. Ordering Physician: Bryan Roman M.D. Primary Care Physician: Primary Care Physician No MEDICAL IMAGING REPORT This report is preliminary unless electronic signature is present EXAM Left elbow HISTORY Elbow pain after falling today. TECHNIQUE Three views of the elbow were obtained. FINDINGS AP and lateral examination of the elbow shows satisfactory articulation of the humerus with the proximal radius and ulna. There is no identifiable fracture, dislocation, joint effusion, or radiopaque foreign body in the soft tissues. IMPRESSION Normal elbow. Dictated by... Carlyle Helton M.D. THIS IS AN ELECTRONICALLY VERIFIED REPORT Carlyle Helton M.D. at 01/20/2017 4:54 PM RU/aline TD: 01/20/2017 13:32 JOB #: [id number] MEDICAL IMAGING REPORT Page 1 of 1 COPY
--- NOTE | ~2017-01-10 | CR72 ---
[facility] A Service of [facility] & [facility] RADIOLOGY TEXT RESULTS PATIENT: MAURIZIO RODRIGUEZ LOCATION: [facility] 304- : 83 UNIT #: [id number] AGE: [address]: BRYAN ROMAN V SEX: M ORDER DR: [id number] [facility] [address] [place], [place] [address] [id number] I MR#: [id number] Acc #: [id number] NAME: MAURIZIO RODRIGUEZ : 1985 SEX: M STUDY DATE/TIME: 01/19/2017 9:22 UNIT: [address] ROOM: [facility] STUDY DESCRIPTION: CR Chest Single View Portable Attending Physician: Bryan Roman M.D. Ordering Physician: Bryan Roman M.D. Primary Care Physician: No Primary Care Physician MEDICAL IMAGING REPORT This report is preliminary unless electronic signature is present EXAM Portable chest, 01/19 INDICATION Weakness and shortness of air this morning. Diabetic ketoacidosis. FINDINGS AP portable chest is compared with 01/10/2017. Lung volumes are low but the lungs are clear. Cardiac and mediastinal contours are normal. There is no pneumothorax. IMPRESSION Low lung volumes but no active disease is seen. Dictated by... Carlyle Taveras Jr., M.D. THIS IS AN ELECTRONICALLY VERIFIED REPORT Carlyle Taveras Jr., M.D. at 01/19/2017 5:10 PM CIRA/kamlesh TD: 01/19/2017 12:15 JOB #: [id number] MEDICAL IMAGING REPORT Page 1 of 1 COPY
--- NOTE | ~2017-01-10 | MR18 ---
[facility] A Service of [facility] & [facility] RADIOLOGY TEXT RESULTS PATIENT: MAURIZIO RODRIGUEZ LOCATION: [facility] : 83 UNIT #: [id number] AGE: [address]: BRYAN ROMAN V SEX: M ORDER DR: [id number] [facility] [address] [place], [place] [address] [id number] I MR#: [id number] Acc #: [id number] NAME: MAURIZIO RODRIGUEZ. : 1985 SEX: M STUDY DATE/TIME: 01/18/2017 17:57 UNIT: [address] ROOM: [address] [place] [address] DESCRIPTION: MR Brain Wo Contrast Attending Physician: Bryan Roman M.D. Ordering Physician: Bryan Roman M.D. Primary Care Physician: Primary Care Physician No MRI CENTER REPORT This report is preliminary unless electronic signature is present. EXAM Brain MRI HISTORY Recent brain stem infarct. Acute mental status guide changer the past several days. TECHNIQUE Multiplanar imaging of the brain was performed with short and long TR. FINDINGS On diffusion weighted images abnormal restricted diffusion is again seen in the upper sean and midbrain more to the right than to the left. The extent of the infarct is stable since the previous examination. No new infarcts are seen in other territories. Ventricular size is normal. No new mass lesions are seen. No evidence of progressive hemorrhage. IMPRESSION Subacute brain stem infarct unchanged from previous exam. No new lesions are identified. Dictated by... Carlyle Helton M.D. THIS IS AN ELECTRONICALLY VERIFIED REPORT Carlyle Helton M.D. at 01/20/2017 7:08 AM EVELINEF/tae TD: 01/19/2017 09:11 JOB #: [id number] [facility] A Service [facility] RADIOLOGY TEXT RESULTS PATIENT: MAURIZIO RODRIGUEZ LOCATION: [facility] 304 : 83 UNIT #: [id number] AGE: [address]: BRYAN ROMAN V SEX: M ORDER DR: MRI CENTER REPORT Page 1 of 1 COPY
--- NOTE | ~2017-01-10 | EKG ---
PATIENT: MAURIZIO RODRIGUEZ UNIT #: [id number] Ventricular Rate: 84 BPM Atrial Rate: 84 BPM P-R Interval: 140 ms QRS Duration: 102 ms Q-T Interval: 388 ms QTC Calculation(Bezet): 458 ms P [place]: 60 degrees Calculated R [place]: 75 degrees Calculated T [place]: 101 degrees Diagnosis Line: Normal sinus rhythm Diagnosis Line: T wave abnormality, consider lateral ischemia Diagnosis Line: Abnormal ECG Diagnosis Line: When compared with ECG of 10-JAN-2017 14:14, Diagnosis Line: ST no longer depressed in Inferior leads Diagnosis Line: ST no longer depressed in Lateral leads Diagnosis Line: Nonspecific T wave abnormality has replaced Diagnosis Line: inverted T waves in Inferior leads Diagnosis Line: T wave inversion no longer evident in Anterior Diagnosis Line: leads Diagnosis Line: Confirmed by JOSEILN MOYA MD ([id number]) on Diagnosis Line: 01/11/2017 3:32:22 PM INTERPRETING MD: MIKE
--- NOTE | ~2017-01-10 | CO ---
Unit #: [id number] #: [id number] Patient: MAURIZIO RODRIGUEZ [id number] [facility] [address] [place], [place] [address] [id number] I MR#: [id number] NAME: MAURIZIO RODRIGUEZ. ROOM: 304 Age: 31 Sex: M Admission Date: 01/10/2017 : 1985 Attending Physician: Ronni Thomas M.D. Primary Care Physician: Katy Primary Care Physician Requesting Physician: Fannie Jackson M.D. Consultation Date: 01/13/2017 CONSULTATION REPORT REASON FOR CONSULTATION Incidental abnormal MRI and stroke. PATIENT IDENTIFICATION This is a 31-year-old right handed white male who was evaluated in room [address] [facility]. SOURCE OF INFORMATION Essentially the medical records and my discussion with Dr. Jackson personally and history and physical and consultation by the physician and also talking to the patient's mother and step-sister. PROBLEM LIST 1. The patient has diabetes. 2. Noncompliance. 3. Diabetic retinopathy. 4. Diabetic peripheral neuropathy. 5. Hypertension. 6. Status post eye surgery and right eye vision loss. 7. He was admitted with DKA and rhabdomyolysis. 8. Prior alcohol abuse. 9. Former smoker. 10. Left kidney mass. HISTORY OF PRESENT ILLNESS This is a 31-year-old gentleman with significant medical history considering his age and comorbidities. He was actually brought in at 8:36 a.m. on 01/10/2017 via EMS. That is when his mother found him at home essentially with some mental status changes. One of the concern was when was he found normal? His mother reports that she goes to work around 9 p.m. and she saw him on the and he had a couple bouts of vomiting and that was it, and the next thing she came in there was decreased level of consciousness. He was significantly hypertensive and that was it. He was in the hospital and they later on noticed that he was having some swallowing problems, there was some facial weakness more prominent and that is why one of the nurses ordered an MRI. Dr. Jackson called me and we discussed what to do. One of the questions that his sister, his step-sister, asked was, was the stroke protocol followed and I explained to her that this gentleman came outside the window of any kind of stroke intervention protocol so (1) . Also, came with confusion and DKA and that was the track that was followed appropriately. He is not a tPA intervention candidate. Unit #: [id number] #: [id number] Patient: MAURIZIO RODRIGUEZ This gentleman has been having some problems with compliance. He apparently ran out of his medication. His step-sister reports that she has medical background but I did not really have her elaborate as to what kind of medical experience she has but she feels guilty because she had medical background and she knew this was going to happen. She was stressing on him and she somehow feels guilty that she could have prevented it. Apparently, the gentleman is quite stubborn. He came in with significant hypertension. His blood pressure was 160/104. It was as high as 180/105 at other times. He was tachycardic at 109. His ABGs were abnormal. pH was 7.32. It was as low as 7.23. pCO2 was 22.7. pO2, two of them, reported 25.2 and 75.9. His creatinine was elevated at 1.2. His random glucose was 314. His sodium was 132. His AST and ALT was elevated. CK was elevated as high as 16,020 and his hemoglobin A1c was 13.4. His ammonia was 34. His MRI, which was done last night, showed focus of restricted diffusion in the midbrain measuring 2.4 x 1.9 cm in dimension, more on the right sided with cerebral peduncle involvement. May be subtle mass. This gentleman is having following difficulty. He has left facial weakness. He is blind in the right eye so diplopia is not reported but his eyes definitely are disconjugate. Dysarthric, but otherwise okay. A bit difficult to deal with him because of probably his age and his condition. He was crying and depressed and family was concerned about him. He was not on aspirin. As a matter of fact, he was not taking any medicine whatsoever. No headaches. PAST MEDICAL HISTORY As discussed above. PAST SURGICAL HISTORY As discussed above. ALLERGIES None known to me. MEDICATIONS Though he was noncompliant, were: 1. Norvasc. 2. Coreg. 3. Zestril. 4. Neurontin. 5. Humalog mix 75/25. FAMILY HISTORY Diabetes in his parents. SOCIAL HISTORY I believe he is single, living at home. He quit smoking some time back. History of alcohol abuse but apparently two years ago. He sometimes Unit #: [id number] #: [id number] Patient: MAURIZIO RODRIGUEZ apparently takes opiates that are not prescribed but his urine drug screen was negative. REVIEW OF SYSTEMS A bit difficult to obtain considering his present state but he denies any recent weight issues, fever, chills, rigors, sweats. HEENT: No headaches. Some swallowing problem, dysarthria. He does have left facial weakness. NECK: No neck problems. CARDIOVASCULAR: No chest pain, clubbing, cyanosis, orthopnea, palpitations. PULMONARY: No shortness of air, cough or expectoration. GASTROINTESTINAL: No nausea, vomiting, diarrhea or constipation. GENITOURINARY: No genitourinary symptoms. EXTREMITIES: No extremity problems. BACK: No back problems. PSYCH: No psychotic issues. NEUROLOGIC: Stroke. He is diabetic. He came in DKA. He has peripheral neuropathy. PHYSICAL EXAMINATION VITAL SIGNS: Temperature 97.1, pulse 90, respirations 18, blood pressure 169/98. O2 sats were 99%, weight 165 pounds. BMI was 27. NEUROLOGICAL EXAMINATION: The patient is quite dysarthric and lethargic but he is fully oriented. He can name and he can follow commands. No right/left confusion, no finger agnosia. CRANIAL NERVE EXAMINATION: Demonstrates full montanez of vision on the left side. Right side is normal. His eyes are disconjugate. There is no much movement in the right eye past midline medially. It is somewhat out and down. Left eye movements are also very sluggish, disconjugate movements. No ptosis, no nystagmus otherwise. Diplopia cannot be assessed because he has loss of vision on the right eye. Funduscopic examination was not successful. He does have right lower facial weakness. No sensory changes. His tongue is midline but he has a little bit of problem with his gag. He would not cooperate with me. He just was having swallowing study done. Head turning was spontaneous. MOTOR EXAMINATION: He has normal bulk and tone. Strength was 5-/5. SENSORY EXAMINATION: Intact for soft touch and pain sensation. More a peripheral neuropathic picture. ROMBERG: Not evaluated. No extinction was seen. GAIT EXAMINATION: Deferred. REFLEXES: I could not get any reflexes. Toes are mute. DIAGNOSTIC STUDIES LABORATORY: Labs reviewed and as discussed in detail earlier in history of present illness. IMPRESSION This is a 31-year-old gentleman with more brainstem stroke, more small vessel type administrative underwriter stroke. I will do full stroke workup on him, put him on aspirin. I will check his B12 and folate and thyroid functions and will go from there. Talked to the family. He is not a tPA intervention candidate. Likely small vessel disease secondary to his comorbidities. He will need rehab and he may need PEG. I showed the images to his step-sister and will see how things go. Echo was done and I will see how other issues are and will go from there. I will keep you informed. Call me if any other questions, issues, concerns. Unit #: [id number] #: [id number] Patient: MAURIZIO RODRIGUEZ Dictated by... Raina Guerrero/atif TD: 01/14/2017 07:22 JOB #: [id number] CONSULTATION REPORT Page 1 of 1 X Hubert Roberts MD CONSULTATION REPORT
--- NOTE | ~2017-01-10 | CO ---
Unit #: [id number] #: [id number] Patient: MAURIIZO RODRIGUEZ L [id number] [address] [address] [id number] MR#: [id number] NAME: MAURIZIO RODRIGUEZ ROOM: 304 Age: 31 Sex: M Admission Date: 01/10/2017 : 1985 Attending Physician: Ivan Roman M.D. Primary Care Physician: Primary Care Physician No CONSULTATION REPORT REASON FOR CONSULTATION Followup. DISCUSSION Mr. Pal is a 31-year-old white male, seen in room 304 bed 1 on 01/17/2017. The patient diagnosed with major depressive disorder; alcohol use disorder, severe. The patient's affect was bright. Mood good and able to carry out a coherent conversation. The patient reports decrease in anxiety. The patient's vital signs; temperature 98.5, pulse 95, respirations 16, blood pressure 151/91, oxygen saturations 99%. The patient denied any suicidal or homicidal ideation. Mood still sad, dysphoric, withdrawn. REVIEW OF SYSTEMS Complete review of systems unremarkable. MENTAL STATUS EXAMINATION General appearance; the patient dressed casually. Attention span and concentration, poor. Speech, slow in volume. Oriented in place and person. Mood and affect, labile. Thought process, circumstantial. Thought content, the patient was somewhat guarded, but denied any thoughts of harming self or others. Recent and remote memory, fair. Language, intact. Fund of knowledge, fair to slightly impaired. Insight and judgment, fair to slightly impaired. DIAGNOSES Psychiatric: Major depressive disorder, recurrent, severe, F33.2; alcohol use disorder, severe, F10.20. ASSESSMENT AND PLAN 1. Supportive psychotherapy and psychoeducation provided to the patient and family. 2. Educated about benefits and side effects of medication and course and prognosis of illness. 3. Advised to continue with current medication combination of Zyprexa 5 mg b.i.d. and Prozac 20 mg daily. If needed, consider further adjustment of medication. The patient is also on Neurontin. Dictated by... Raina Laws/delmis Unit #: [id number] #: [id number] Patient: MAURIZIO RODRIGUEZ TD: 01/18/2017 16:01 JOB #: [id number] CONSULTATION REPORT Page 1 of 1 X Alejandro Aguilar MD CONSULTATION REPORT
--- NOTE | ~2017-01-10 | EKG ---
PATIENT: MAURIZIO RODRIGUEZ UNIT #: [id number] Ventricular Rate: 101 BPM Atrial Rate: 101 BPM P-R Interval: 96 ms QRS Duration: 92 ms Q-T Interval: 386 ms QTC Calculation(Bezet): 500 ms P Olin: 68 degrees Calculated R Olin: 56 degrees Calculated T Olin: -77 degrees Diagnosis Line: Sinus tachycardia with short FL Diagnosis Line: ST and T wave abnormality, consider anterolateral Diagnosis Line: ischemia Diagnosis Line: Left ventricular hypertrophy Diagnosis Line: Abnormal ECG Diagnosis Line: When compared with ECG of 23-NOV-2016 18:23, Diagnosis Line: ST now depressed in Inferior leads Diagnosis Line: T wave inversion now evident in Inferior leads Diagnosis Line: T wave inversion now evident in Anterior leads Diagnosis Line: Confirmed by LOUISA KELLER MD ([id number]) on 01/10/2017 Diagnosis Line: 6:35:32 PM INTERPRETING MD: ARIANNA FINNEY
--- NOTE | ~2017-01-10 | CR72 ---
[facility] A Service of [facility] RADIOLOGY TEXT RESULTS PATIENT: MAURIZIO RODRIGUEZ LOCATION: [place] [id number] : [birth year] UNIT #: [id number] AGE: [address]: Ronni Thomas MD SEX: M ORDER DR: [id number] [facility] [address] [facility]. [place], [place] [address] [id number] MR#: [id number] Acc #: [id number] NAME: MAURIZIO RODRIGUEZ. : 1985 SEX: M STUDY DATE/TIME: 01/10/2017 14:43 UNIT: [facility] ROOM: [facility] STUDY DESCRIPTION: CR Chest Single View Portable Attending Physician: Layla Beltran M.D. Ordering Physician: Layla Beltran M.D. Primary Care Physician: No Primary Care Physician MEDICAL IMAGING REPORT This report is preliminary unless electronic signature is present EXAM Portable chest x-ray 01/10/2017. HISTORY Diabetic ketoacidosis. Further weakness. Began today. Former smoker. TECHNIQUE AP radiograph of the chest is presented. Comparison 08/09/2013. FINDINGS The lung volumes are lower than on the prior examination but there is no evidence of acute infectious or inflammatory disease, pleural effusion or pneumothorax and no suspicious nodule. Heart normal in size. No acute-appearing bony abnormality. At least moderate gaseous distension of partially visualized stomach. No free air. Dictated by... Sebastian Haro M.D. THIS IS AN ELECTRONICALLY VERIFIED REPORT Sebastian Haro M.D. at 01/11/2017 6:25 PM Gene TD: 01/11/2017 00:02 JOB #: [id number] MEDICAL IMAGING REPORT Page 1 of 1 COPY
[2017-01-10 10:05] LABS: URINE SOURCE CLEAN CATCH
[2017-01-10 10:12] LABS: URINE APPEARANCE CLEAR; URINE BILIRUBIN NEG (NEG); URINE BLOOD 3+ (NEG); URINE COLOR YELLOW; URINE GLUCOSE >1000 MG/DL (NEG); URINE KETONE 3+ (NEG); URINE LEUKOCYTE ESTERASE NEG (NEG); URINE NITRATE NEG (NEG); URINE PROTEIN 3+ (NEG); URINE UROBILINOGEN 0.2 MG/DL (NEG)
[2017-01-10 10:15] LABS: URINE BACTERIA AUWI NEG (NEGATIVE); URINE SQUAMOUS EPITHELIAL CELL NONE SEEN /[HPF]; UWBCS1 AUWI 0-2 (0-5)
[2017-01-10 10:19] LABS: BASOPHIL% 0.1 % (0-2.5); HEMATOCRIT 38.2 % (38.0-50.0); LYMPHOCYTE# 1.9 X10e3 (1.0-3.5); LYMPHOCYTE% 7.8 % (17.0-45.0); MEAN CELL VOLUME 83.7 FL (83-96); MEAN CORPUSCULAR HEMOGLOBIN 28.5 PG (28-34); MEAN CORPUSCULAR HGB CONC 34.1 g/dL (30-36); MONOCYTE# 2.2 X10e3 (0-1.0); MONOCYTE% 8.6 % (3.0-12.0); NEUTROPHIL# 20.8 X10e3 (1.5-7.1); NEUTROPHIL% 83.5 % (40-75); PLATELET COUNT 389 X10e3 (140-420); RED BLOOD COUNT 4.56 X10e (3.90-5.60); RED CELL DISTRIBUTION WIDTH 13.1 % (11.0-15.5); WHITE BLOOD COUNT 24.9 X10e3 (4.0-10.5)
[2017-01-10 10:22] LABS: CULTURE INDICATED? NO
[2017-01-10] MEDS ORDERED: NORVASC10 MG PO (10:22)
[2017-01-10] MEDS ORDERED: PATIENT'S PHARMACY (10:22)
[2017-01-10] MEDS ORDERED: NEURONTIN100 MG PO (10:23)
[2017-01-10] MEDS ORDERED: LISINOPRIL PO (10:23)
[2017-01-10] MEDS ORDERED: COREG3.125 MG PO (10:23)
[2017-01-10] MEDS ORDERED: HUMALOG MI100 UNIT/2 (10:24)
[2017-01-10 10:26] LABS: DIFF IND YES
[2017-01-10 10:45] LABS: PLATELET ESTIMATE NORMAL (NORMAL)
[2017-01-10 11:14] LABS: ALBUMIN SERUM 3.9 g/dL (3.5-5.0); BETA HYDROXYBUTYRATE 7.91 MMOL/L (0.02-0.27); BILIRUBIN, DIRECT 0.1 mg/dL (0.0-0.2); BILIRUBIN,INDIRECT 1.7 mg/dL (0.0-0.9); BILIRUBIN,TOTAL 1.8 mg/dL (0.2-2.0); BUN/CREATININE RATIO 22.5; CALCIUM SERUM 8.5 mg/dL (8.4-10.2); CREATININE SERUM 1.2 mg/dL (0.6-1.4); POTASSIUM 3.7 mmol/L (3.5-5.1); PROTEIN TOTAL SERUM 7.1 g/dL (6.0-8.3)
[2017-01-10 14:29] LABS: ARTERIAL BLD GAS O2 SATURATION 42.4 % (90.0-100.0); ARTERIAL BLOOD GAS CARBOXY HB 1.3 %sat (0.0-9.0); ARTERIAL BLOOD GAS HCO3 12.2 mmol/L; ARTERIAL BLOOD GAS PCO2 29.2 mmHg (35.0-45.0); ARTERIAL BLOOD GAS pH 7.231 (7.350-7.450)
[2017-01-10 14:32] LABS: ARTERIAL BLOOD GAS PO2 25.2 mmHg (80.0-100); ARTERIAL DRAW? NO
[2017-01-10 14:44] LABS: AMPHETAMINE NEG (NEG); BARBITURATES NEG (NEG); BENZODIAZEPINES NEG (NEG); COCAINE NEG (NEG); MARIJUANA NEG (NEG); OPIATES NEG (NEG); TRICYCLIC ANTIDEPRESSANTS POS (NEG); U METHADONE NEG (NEG)
[2017-01-10 15:10] LABS: BUN/CREATININE RATIO 22.22; CREATININE SERUM 0.9 mg/dL (0.6-1.4); GLOM FILT RATE Estimated 111.8 mL/min (>60); POTASSIUM 3.7 mmol/L (3.5-5.1)
[2017-01-10 15:34] LABS: MAGNESIUM 2.1 mg/dL (1.6-3.0); PHOSPHOROUS 3.3 mg/dL (2.5-4.6)
[2017-01-10 15:52] LABS: %MB 0.2 % (0.0-4.0); MB 30.4 ng/ml
[2017-01-10 18:25] LABS: CALCIUM SERUM 7.8 mg/dL (8.4-10.2); CREATININE SERUM 0.9 mg/dL (0.6-1.4); GLOM FILT RATE Estimated 111.8 mL/min (>60); POTASSIUM 3.5 mmol/L (3.5-5.1)
[2017-01-10 21:21] LABS: %MB 0.2 % (0.0-4.0); MB 22.8 ng/ml
[2017-01-10 23:05] LABS: CALCIUM SERUM 7.8 mg/dL (8.4-10.2); CREATININE SERUM 0.7 mg/dL (0.6-1.4); POTASSIUM 3.7 mmol/L (3.5-5.1)
[2017-01-11 04:31] LABS: BASOPHIL% 0.2 % (0-2.5); DIFF IND NO; EOSINOPHIL# 0.2 X10e3 (0-0.7); EOSINOPHIL% 1.1 % (0.0-7.0); HEMATOCRIT 33.5 % (38.0-50.0); HEMOGLOBIN 11.6 gm/dL (13.0-16.0); LYMPHOCYTE# 2.5 X10e3 (1.0-3.5); LYMPHOCYTE% 13.9 % (17.0-45.0); MEAN CELL VOLUME 82.9 FL (83-96); MEAN CORPUSCULAR HEMOGLOBIN 28.7 PG (28-34); MEAN CORPUSCULAR HGB CONC 34.7 g/dL (30-36); MEAN PLATELET VOLUME 6.9 FL (6.5-11.5); MONOCYTE# 1.6 X10e3 (0-1.0); MONOCYTE% 8.5 % (3.0-12.0); NEUTROPHIL% 76.3 % (40-75); PLATELET COUNT 342 X10e3 (140-420); RED BLOOD COUNT 4.04 X10e (3.90-5.60); WHITE BLOOD COUNT 18.3 X10e3 (4.0-10.5)
[2017-01-11 05:07] LABS: ALBUMIN SERUM 3.1 g/dL (3.5-5.0); BILIRUBIN,TOTAL 1.3 mg/dL (0.2-2.0); CALCIUM SERUM 7.6 mg/dL (8.4-10.2); CREATININE SERUM 0.5 mg/dL (0.6-1.4); GLOM FILT RATE Estimated 142.4 mL/min (>60); PHOSPHOROUS 1.8 mg/dL (2.5-4.6); POTASSIUM 3.5 mmol/L (3.5-5.1)
[2017-01-11 06:22] LABS: %MB 0.3 % (0.0-4.0); MB 32.3 ng/ml
[2017-01-11 07:25] LABS: ARTERIAL BLD GAS O2 SATURATION 94.3 % (90.0-100.0); ARTERIAL BLOOD GAS CARBOXY HB 1.4 %sat (0.0-9.0); ARTERIAL BLOOD GAS HCO3 11.8 mmol/L; ARTERIAL BLOOD GAS MET HB 0.9 %sat (0.0-2.0); ARTERIAL BLOOD GAS PCO2 22.7 mmHg (35.0-45.0); ARTERIAL BLOOD GAS pH 7.322 (7.350-7.450)
[2017-01-11 07:26] LABS: ARTERIAL BLOOD GAS PO2 75.9 mmHg (80.0-100); ARTERIAL DRAW? NO
[2017-01-11 12:37] LABS: BUN/CREATININE RATIO 16.66; CALCIUM SERUM 7.8 mg/dL (8.4-10.2); CREATININE SERUM 0.6 mg/dL (0.6-1.4); GLOM FILT RATE Estimated 132.2 mL/min (>60); PHOSPHOROUS 1.6 mg/dL (2.5-4.6); POTASSIUM 3.8 mmol/L (3.5-5.1)
[2017-01-11 19:19] LABS: BUN/CREATININE RATIO 16.66; CALCIUM SERUM 8.1 mg/dL (8.4-10.2); CREATININE SERUM 0.6 mg/dL (0.6-1.4); GLOM FILT RATE Estimated 132.2 mL/min (>60); MAGNESIUM 1.9 mg/dL (1.6-3.0); PHOSPHOROUS 1.6 mg/dL (2.5-4.6); POTASSIUM 3.4 mmol/L (3.5-5.1)
[2017-01-12 05:29] LABS: CALCIUM SERUM 7.9 mg/dL (8.4-10.2); CREATININE SERUM 0.5 mg/dL (0.6-1.4); GLOM FILT RATE Estimated 142.4 mL/min (>60); MAGNESIUM 2.2 mg/dL (1.6-3.0); POTASSIUM 3.1 mmol/L (3.5-5.1)
[2017-01-12 12:25] LABS: INR 0.9; PROTHROMBIN TIME (PATIENT) 9.8 SECONDS (10.0-11.7)
[2017-01-13 05:21] LABS: BASOPHIL% 0.3 % (0-2.5); EOSINOPHIL# 0.2 X10e3 (0-0.7); EOSINOPHIL% 1.6 % (0.0-7.0); HEMOGLOBIN 11.8 gm/dL (13.0-16.0); LYMPHOCYTE% 17.3 % (17.0-45.0); MEAN CELL VOLUME 81.9 FL (83-96); MEAN CORPUSCULAR HEMOGLOBIN 28.4 PG (28-34); MEAN CORPUSCULAR HGB CONC 34.8 g/dL (30-36); MEAN PLATELET VOLUME 7.4 FL (6.5-11.5); MONOCYTE# 1.4 X10e3 (0-1.0); MONOCYTE% 11.8 % (3.0-12.0); PLATELET COUNT 379 X10e3 (140-420); RED BLOOD COUNT 4.16 X10e (3.90-5.60); RED CELL DISTRIBUTION WIDTH 12.9 % (11.0-15.5); WHITE BLOOD COUNT 11.6 X10e3 (4.0-10.5)
[2017-01-13 05:33] LABS: DIFF IND NO
[2017-01-13 05:42] LABS: INR 0.9; PARTIAL THROMBOPLASTIN TIME 27.1 SECONDS (23.5-31.3)
[2017-01-13 07:10] LABS: ALBUMIN SERUM 3.2 g/dL (3.5-5.0); BILIRUBIN,TOTAL 0.9 mg/dL (0.2-2.0); CALCIUM SERUM 8.7 mg/dL (8.4-10.2); CREATININE SERUM 0.5 mg/dL (0.6-1.4); GLOM FILT RATE Estimated 142.4 mL/min (>60); PHOSPHOROUS 2.1 mg/dL (2.5-4.6); POTASSIUM 3.7 mmol/L (3.5-5.1); PROTEIN TOTAL SERUM 6.3 g/dL (6.0-8.3)
[2017-01-13 07:50] LABS: CHOLESTEROL 176 mg/dL (0-200); HDL CHOLESTEROL 39 mg/dL (29-75); LDL CHOLESTEROL 106 mg/dL (-130); LDL/HDL RATIO 3 RATIO (0-4); TRIGLYCERIDES 156 mg/dL (10-160)
[2017-01-13 13:07] LABS: THYROID STIMULATING HORMONE 1.48 uIU/ml (0.34-5.60)
[2017-01-13 13:14] LABS: FREE THYROXIN (T4) 1.29 ng/dL (0.58-1.64)
[2017-01-13 13:19] LABS: FOLATE (FOLIC ACID) 10.7 ng/mL (>5.8)
[2017-01-14 12:18] LABS: CALCIUM SERUM 8.7 mg/dL (8.4-10.2); CREATININE SERUM 0.6 mg/dL (0.6-1.4); GLOM FILT RATE Estimated 132.2 mL/min (>60); MAGNESIUM 1.8 mg/dL (1.6-3.0); POTASSIUM 3.9 mmol/L (3.5-5.1)
[2017-01-15 06:06] LABS: HEMATOCRIT 32.1 % (38.0-50.0); HEMOGLOBIN 11.2 gm/dL (13.0-16.0); MEAN CELL VOLUME 82.1 FL (83-96); MEAN CORPUSCULAR HEMOGLOBIN 28.6 PG (28-34); MEAN CORPUSCULAR HGB CONC 34.8 g/dL (30-36); RED BLOOD COUNT 3.91 X10e (3.90-5.60); RED CELL DISTRIBUTION WIDTH 12.5 % (11.0-15.5); WHITE BLOOD COUNT 11.6 X10e3 (4.0-10.5)
[2017-01-15 07:19] LABS: BUN/CREATININE RATIO 21.66; CALCIUM SERUM 8.7 mg/dL (8.4-10.2); CREATININE SERUM 0.6 mg/dL (0.6-1.4); GLOM FILT RATE Estimated 132.2 mL/min (>60); POTASSIUM 3.9 mmol/L (3.5-5.1)
[2017-01-17 07:47] LABS: BUN/CREATININE RATIO 17.14; CALCIUM SERUM 9.1 mg/dL (8.4-10.2); CREATININE SERUM 0.7 mg/dL (0.6-1.4); POTASSIUM 4.1 mmol/L (3.5-5.1)
[2017-01-18 11:53] LABS: AMPHETAMINE NEG (NEG); BARBITURATES NEG (NEG); BENZODIAZEPINES NEG (NEG); COCAINE NEG (NEG); MARIJUANA NEG (NEG); OPIATES NEG (NEG); TRICYCLIC ANTIDEPRESSANTS NEG (NEG); U METHADONE NEG (NEG)
[2017-01-18 12:42] LABS: ALBUMIN SERUM 2.9 g/dL (3.5-5.0); BILIRUBIN,TOTAL 0.6 mg/dL (0.2-2.0); CALCIUM SERUM 8.8 mg/dL (8.4-10.2); GLOM FILT RATE Estimated 98.5 mL/min (>60); PHOSPHOROUS 4.2 mg/dL (2.5-4.6); POTASSIUM 4.4 mmol/L (3.5-5.1); PROTEIN TOTAL SERUM 5.9 g/dL (6.0-8.3)
[2017-01-19 12:10] LABS: HEMATOCRIT 33.7 % (38.0-50.0); HEMOGLOBIN 11.5 gm/dL (13.0-16.0); MEAN CELL VOLUME 82.1 FL (83-96); MEAN CORPUSCULAR HEMOGLOBIN 27.9 PG (28-34); RED BLOOD COUNT 4.1 X10e (3.90-5.60); RED CELL DISTRIBUTION WIDTH 12.6 % (11.0-15.5); WHITE BLOOD COUNT 11.7 X10e3 (4.0-10.5)
[2017-01-19 12:42] LABS: URINE APPEARANCE CLEAR; URINE BILIRUBIN NEG (NEG); URINE BLOOD TRACE (NEG); URINE COLOR YELLOW; URINE GLUCOSE >1000 MG/DL (NEG); URINE KETONE NEG (NEG); URINE LEUKOCYTE ESTERASE NEG (NEG); URINE NITRATE NEG (NEG); URINE PH 6.5 (5-8); URINE PROTEIN 2+ (NEG); URINE SPECIFIC GRAVITY 1.032 (1.003-1.035)
[2017-01-19 12:44] LABS: ALBUMIN SERUM 3.3 g/dL (3.5-5.0); BILIRUBIN,TOTAL 0.6 mg/dL (0.2-2.0); BUN/CREATININE RATIO 27.14; CALCIUM SERUM 9.2 mg/dL (8.4-10.2); CREATININE SERUM 0.7 mg/dL (0.6-1.4); POTASSIUM 4.5 mmol/L (3.5-5.1); PROTEIN TOTAL SERUM 7.2 g/dL (6.0-8.3)
[2017-01-19 12:44] LABS: URINE BACTERIA AUWI NEG (NEGATIVE); URINE SQUAMOUS EPITHELIAL CELL OCC /[HPF]
[2017-01-19 12:54] LABS: AMPHETAMINE NEG (NEG); BARBITURATES NEG (NEG); BENZODIAZEPINES NEG (NEG); COCAINE NEG (NEG); MARIJUANA NEG (NEG); OPIATES NEG (NEG); TRICYCLIC ANTIDEPRESSANTS NEG (NEG); U METHADONE NEG (NEG)
[2017-01-20 07:11] LABS: MAGNESIUM 1.8 mg/dL (1.6-3.0); POTASSIUM 4.3 mmol/L (3.5-5.1)
[2017-01-20 12:38] LABS: ANA SCREEN Negative (Negative); CARDIOLIPIN IGG (LUPUS) <14 GPL (<=14); CARDIOLIPIN IGM (LUPUS) <12 MPL (<=12); DRVVT MIX INTERP (LUPUS) Not Indicated (()); PROTROMBIN TIME LUPUS 10.4 sec (9.0-11.5); PT (LA MIX STUDY) 10.4 sec (<=11.5); PTT-LA 36 sec (<=40); PTT-LA SCREEN (LUPUS) 36 sec (<=40); THROMBIN TIME LUPUS 14 sec (13-19); dRVVT SCREEN (LUPUS) 45 sec (<=45)
== END 2017-01-20 14:49 | DRG 64 ==
LOC: CED 08:36 → C3A PCU 13:45 → CEDOF 13:45 → CED 15:20 → CEDOF 15:20 → CICCU3 15:23 → C2A 01-12 11:28 → C3A PCU 01-12 21:29
PROVIDERS: Anesthesiology; Emergency Medicine; Family Medicine; Internal Medicine; Internal Medicine Pulmonary Disease; Psychiatry & Neurology Neurology
PROC: B325YZZ Computerized Tomography (CT Scan) of Bilateral Common Carotid Arteries using Other Contrast (ICD-10-PCS; 2017-01-15)
PROC: B32RYZZ Computerized Tomography (CT Scan) of Intracranial Arteries using Other Contrast (ICD-10-PCS; 2017-01-15)
PROC: B32GYZZ Computerized Tomography (CT Scan) of Bilateral Vertebral Arteries using Other Contrast (ICD-10-PCS; principal; 2017-01-15 09:12)
DX: I63.511 Cerebral infarction due to unspecified occlusion or stenosis of right middle cerebral artery (principal); E13.10 Other specified diabetes mellitus with ketoacidosis without coma; G92 Toxic encephalopathy; N17.9 Acute kidney failure, unspecified; F33.2 Major depressive disorder, recurrent severe without psychotic features; M62.82 Rhabdomyolysis; E87.1 Hypo-osmolality and hyponatremia; Z79.4 Long term (current) use of insulin; E11.319 Type 2 diabetes mellitus with unspecified diabetic retinopathy without macular edema; E11.40 Type 2 diabetes mellitus with diabetic neuropathy, unspecified; Z87.891 Personal history of nicotine dependence; N28.89 Other specified disorders of kidney and ureter; Z91.14 Patient's other noncompliance with medication regimen; F10.21 Alcohol dependence, in remission; F19.10 Other psychoactive substance abuse, uncomplicated; R33.9 Retention of urine, unspecified; R13.10 Dysphagia, unspecified; G31.84 Mild cognitive impairment of uncertain or unknown etiology; S90.812A Abrasion, left foot, initial encounter
CPT/HCPCS: 36415; 70496; 70498; 70544; 70547; 70551; 71010; 73070; 74177; 74230; 80048; 80053; 80061; 80076; 80307; 81003; 82010; 82140; 82150; 82308; 82550; 82553; 82607; 82746; 82803; 82947; 83036; 83690; 83735; 84100; 84132; 84439; 84443; 84484; 85025; 85027; 85610; 85613; 85652; 85670; 85730; 86038; 86039; 86140; 86147; 87040; 87070; 87077; 87086; 87186; 87205; 92507; 92523-GN; 92526; 92610; 92611; 93005; 93306; 96361; 96374; 96375; 97110; 97112; 97116; 97162; 97167; 97530; 97535; 99285; C9113; G8978-GP; G8979-GP; G8987-GO; G8988-GO; G8996-GN; G8997-GN; J0330; J0360; J0696; J1650; J1815; J2060; J2710; J3475; Q9967